=== PATIENT | male | born 1955 | race Caucasian/White ===

== ENCOUNTER → 2016-07-12 | Day surgery (SDC) | payer OTHER ==
[2016-07-12 08:28] LABS: HCT 42.9 % (42.0-52.0); HGB 14.8 g/dl (13.2-18.0); MCH 32.2 pg (25.0-31.0); MCHC 34.5 g/dL (32.0-36.0); MCV 93.3 fL (78.0-100.0); MPV 10.5 fL (6.0-9.5); RBC 4.6 M/uL (4.70-6.00); RDW 12.9 % (11.5-14.0); WBC 5.6 K/uL (4.0-10.5)
[2016-07-12 08:45] LABS: ALBUMIN 4.5 g/dL (3.5-5.0); CREATININE 1.2 mg/dL (0.7-1.2); GLOBULIN (CALCULATION) 3.6 g/dL (2.2-4.2); TOTAL PROTEIN 8.1 g/dL (6.4-8.3)
== END | disposition home or self-care (01) ==
LOC: FAS 08:05
PROVIDERS: Surgery
DX: Z12.11 Encounter for screening for malignant neoplasm of colon (principal); I10 Essential (primary) hypertension; E78.5 Hyperlipidemia, unspecified; Z88.0 Allergy status to penicillin; Z79.899 Other long term (current) drug therapy; Z87.891 Personal history of nicotine dependence
CPT/HCPCS: 36415; 80053; J2704